=== PATIENT | female | born 2000 | race African-American/Black ===

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

== ENCOUNTER 2019-05-06 21:55 | Emergency (ER) | payer OTHER ==
--- NOTE | 2019-05-06 22:07 | PDOC ---
History of Present Illness - General Chief Complaint: Irregular Heart Beat Stated Complaint: ELEVATED HEART RATE Time Seen by Provider: 05/06/19 22:02 Past History - Past Medical History Allergies/Adverse Reactions: Allergies Allergy/AdvReac Type Severity Reaction Status Date / Time No Known Allergies Allergy Verified 05/06/19 22:01 Home Medications: Ambulatory Orders 19 Tablet 1 tab PO DAILY 05/06/19 Asthma: No Cancer: No Cardiac Disorders: No COPD: No Diabetes: No HTN: No Seizures: No Thyroid Disease: No - Reproductive History (#): 2 Para: 1 Cervical CA: No Dysfunctional Uterine Bleeding: No Ectopic : No Endometrial CA: No Polycystic Ovaries: No Tubal Ligation: No - Immunization History Immunization Up to Date: Yes - Suicide/Smoking/Psychosocial Hx Smoking History: Never smoked Have you smoked in the past 12 months: No If you are a former smoker, when did you quit?: 2016 Information on smoking cessation initiated: No Hx Alcohol Use: No Drug/Substance Use Hx: No Substance Use Type: Marijuana Hx Substance Use Treatment: No *Physical Exam - Vital Signs Last Vital Signs Temp Pulse Resp BP Pulse Ox 98.6 F 111 H 20 128/62 98 05/06/19 22:01 05/06/19 22:01 05/06/19 22:01 05/06/19 22:01 05/06/19 22:01 ED Treatment Course - LABORATORY CBC & Chemistry Diagram: 05/06/19 22:42 05/06/19 22:42 Medical Decision Making - Medical Decision Making HPI: 19 yo F A0 currently 28 weeks presenting with crampy lower abdominal pain x 1 day. First was complicated by short cervix and gestational diabetes. Patient initially presented to L&D and was found to be without distress. Sent to the ED for evaluation of tachycardia. Patient with HR of 111 after receiving 1L of fluids. Has no abdominal pain currently. Patient reports that she has not been eating or hydrating well. Only had one glass of water today. Does not know if she has as history of tachycardia. No lightheadedness, weakness, or headache. Last bowel movement was today and was a normal formed brown stool without blood. Denies contractions, vaginal bleeding/ discharge. No fevers, chills, chest pain, or shortness of breath. PCP: Dr. Patel smart energy specialist: Dr. Mckeon ROS: Constitutional: no fever, no chills HEENT: no throat pain, no dysphagia Cardiovascular: no chest pain, no palpitations Respiratory: no cough, no shortness of breath Gastrointestinal: +abdominal pain, no nausea Genitourinary: no dysuria, no frequency Musculoskeletal: no myalgia, no arthralgia Skin: no rash, no itching Neurologic: no headache, no weakness PE: General: Awake, alert, and fully oriented, in no acute distress Head: No signs of trauma Eyes: EOMI, sclera anicteric ENT: Moist mucus membranes Neck: Normal ROM, supple Lungs: Lungs clear, Normal breath sounds Cardio: Tachycardia, Regular rhythm, S1 and S2 present Abdomen: Soft, nontender. No guarding, no rebound, no masses. Gravid uterus. Extremities: Normal range of motion, Distal pulses present SKIN: Warm, Dry, normal turgor Neurologic: Cranial nerves II through XII grossly intact. Normal speech ED Courses/ MDM: DDX including but not limited to dehydration, anemia, electrolyte abnormality, hyperthyroidism Labs, EKG, Fluids 05/06/19 22:28 Per nurse Gennaro, patient initially refused IV placement 20 gauge IV placed in the Left AC by myself Labs sent 05/06/19 22:48 CBC WBC 8.5 K/mm3 (4.0-10.0) 05/06/19 22:42 RBC 3.51 M/mm3 (3.60-5.2) L 05/06/19 22:42 Hgb 11.2 GM/dL (10.7-15.3) 05/06/19 22:42 Hct 32.6 % (32.4-45.2) D 05/06/19 22:42 MCV 93.0 fl (80-96) 05/06/19 22:42 MCH 32.0 pg (25.7-33.7) 05/06/19 22:42 MCHC 34.4 g/dl (32.0-36.0) 05/06/19 22:42 RDW 11.9 % (11.6-15.6) 05/06/19 22:42 Plt Count 223 K/MM3 (134-434) 05/06/19 22:42 MPV 8.3 fl (7.5-11.1) 05/06/19 22:42 Absolute Neuts (auto) 7.1 K/mm3 (1.5-8.0) 05/06/19 22:42 Neutrophils % 83.0 % (42.8-82.8) H D 05/06/19 22:42 Lymphocytes % 9.4 % (8-40) D 05/06/19 22:42 Monocytes % 6.7 % (3.8-10.2) 05/06/19 22:42 Eosinophils % 0.5 % (0-4.5) 05/06/19 22:42 Basophils % 0.4 % (0-2.0) 05/06/19 22:42 Nucleated RBC % 0 % (0-0) 05/06/19 22:42 No anemia or leukocytosis CMP Sodium 140 mmol/L (136-145) 05/06/19 22:42 Potassium 3.5 mmol/L (3.5-5.1) 05/06/19 22:42 Chloride 108 mmol/L (98-107) H 05/06/19 22:42 Carbon Dioxide 25 mmol/L (21-32) 05/06/19 22:42 Anion Gap 7 MMOL/L (8-16) L 05/06/19 22:42 BUN 4.7 mg/dL (7-18) L 05/06/19 22:42 Creatinine 0.5 mg/dL (0.55-1.3) L 05/06/19 22:42 Est GFR (CKD-EPI)AfAm 161.48 05/06/19 22:42 Est GFR (CKD-EPI)NonAf 139.32 05/06/19 22:42 Random Glucose 90 mg/dL (74-106) 05/06/19 22:42 Calcium 8.4 mg/dL (8.5-10.1) L 05/06/19 22:42 Total Bilirubin 0.2 mg/dL (0.2-1) 05/06/19 22:42 AST 10 U/L (15-37) L 05/06/19 22:42 ALT 11 U/L (13-61) L 05/06/19 22:42 Alkaline Phosphatase 92 U/L (45-117) 05/06/19 22:42 Total Protein 6.7 g/dl (6.4-8.2) 05/06/19 22:42 Albumin 2.9 g/dl (3.4-5.0) L 05/06/19 22:42 TSH 0.66 uIU/ml (0.358-3.74) 05/06/19 22:42 Electrolytes unremarkable Normal TSH EKG: rate 118, QTc 454, sinus tachycardia Patient given total of 3L NS (1L on L&D and 2L in the ED) Repeat HR is 129 I am unsure what is the cause of her tachycardia. Tachycardia up to 25% above normal can be expected during , especially during the third trimester, but this is above the expected level. If the cause of the tachycardia was dehydration, patient should be sufficiently hydrated by now. Denies history of cardiac problems. Normal TSH. While EKG does not show afib or SVT, there is concern for a cardiac abnormality. Plan for admission. Patient unwilling to stay for admission stating she needs to take care of her son. Benefits/risks of admission explained, and patient still refuses. Signed AMA form Referral to cardiology given 05/07/19 01:22 *DC/Admit/Observation/Transfer Diagnosis at time of Disposition: Tachycardia, Left against medical advice Abdominal pain during Qualifiers: Trimester: third trimester Qualified Code(s): O26.893 - Other specified related conditions, third trimester - Discharge Dispostion Disposition: AGAINST MEDICAL ADVICE Condition at time of disposition: Guarded - Referrals Referrals: Tracee Patel MD [Primary Care Provider] - Jeramy Tamayo MD [Staff Physician] - - Patient Instructions Printed Discharge Instructions: DI for Dehydration -- Adult, DI for Tachycardia Additional Instructions: You came into the emergency department for abdominal pain during and a high heart rate. Your blood work and EKG were within normal limits. You decided to leave against medical advice. As discussed you may have undiagnosed illness or medical diagnosis that if left untreated can lead to multiple complications including, but not limited to permanent disability and . Should you reconsider you should turn to the emergency department for evaluation. Eat and hydrate throughout the day to prevent dehydration and low blood sugar levels. Follow-up with your cargo services coordinator to discuss this ED visit and to further evaluate your symptoms. Call and make an appointment tomorrow morning. Your workup is not complete until you do so. We put in a referral for cardiology. Call and make an appointment. Your workup is not complete until you do so. Immediate medical attention is required if: worsening pain, vaginal bleeding, have any chest pain, palpitations, shortness of breath, severe headaches, changes in vision, focal numbness or weakness, any severe abdominal pain, any black tarry stool, or any new or concerning symptoms. If you think you are having an emergency, call for emergency medical services or present to the emergency department right away. - Post Discharge Activity Forms/Work/School Notes: Back to Work
[2019-05-06 22:17] VITALS: TEMP 98.6; BMI 24.5
[2019-05-06] MEDS ORDERED: SODIUM CHLORIDE 2,000 ML IV STA (22:27)
[2019-05-06 22:54] LABS: BASO % 0.4 % (0-2.0); EOS % 0.5 % (0-4.5); HEMATOCRIT 32.6 % (32.4-45.2); HEMOGLOBIN 11.2 GM/dL (10.7-15.3); LYMPH % 9.4 % (8-40); MCHC 34.4 g/dl (32.0-36.0); MEAN PLT VOLUME 8.3 fl (7.5-11.1); MONO % 6.7 % (3.8-10.2); PLATELET COUNT 223 K/MM3 (134-434); RBC 3.51 M/mm3 (3.60-5.2); RDW 11.9 % (11.6-15.6); WHITE BLOOD COUNT 8.5 K/mm3 (4.0-10.0)
[2019-05-06 23:12] LABS: INR 0.97 (0.83-1.09); PROTHROMBIN TIME (PATIENT) 11.4 SEC (9.7-13.0)
[2019-05-06 23:17] LABS: ALBUMIN 2.9 g/dl (3.4-5.0); BILIRUBIN,TOTAL 0.2 mg/dL (0.2-1); BLOOD UREA NITROGEN 4.7 mg/dL (7-18); CALCIUM 8.4 mg/dL (8.5-10.1); CREATININE 0.5 mg/dL (0.55-1.3); POTASSIUM 3.5 mmol/L (3.5-5.1); TOT PROT 6.7 g/dl (6.4-8.2)
--- NOTE | 2019-05-07 00:06 | PDOC ---
Documentation entered by Angélica Kaur SCRIBE, acting as scribe for Jackie Bee MD. Jackie Bee MD: This documentation has been prepared by the Natasha ron Brenda, SCRIBE, under my direction and personally reviewed by me in its entirety. I confirm that the documentation accurately reflects all work, treatment, procedures, and medical decision making performed by me. Attending Attestation - Resident Resident Name: Juany Harry - ED Attending Attestation I have performed the following: I have examined & evaluated the patient, The case was reviewed & discussed with the resident, I agree w/resident's findings & plan, Exceptions are as noted - HPI HPI: 05/06/19 22:54 The patient is a 19 year old female (), currently 28 weeks , with a significant PMH of gestational diabetes and short cervix during last delivery, who presents to the emergency department sent from L&D for evaluation of tachycardia. The patient reports going to L&D today for 1 day of lower abdominal cramping, where she was found to be tachycardic and sent to the ED for evaluation. She also stated that she has recently been having poor PO intake and has been feeling dehydrated. Patient also notes that her other child was recently recovering from [place]. The patient denies chest pain, shortness of breath, headache and dizziness. Denies fever, chills, nausea, vomiting, diarrhea and constipation. Denies dysuria, frequency, urgency and hematuria. Denies spotting. Allergies: NKA Social history: Hx of marijuana use. PCP: Tracee Patel MD - Physicial Exam PE: 05/06/19 22:54 GENERAL: Afebrile. Awake, alert, and fully oriented, in no acute distress HEAD: No signs of trauma EYES: PERRLA, EOMI, sclera anicteric, conjunctiva clear ENT: Auricles normal inspection, hearing grossly normal, nares patent, oropharynx clear without exudates. Moist mucosa NECK: Normal ROM, supple, no lymphadenopathy, JVD, or masses LUNGS: Breath sounds equal, clear to auscultation bilaterally. No wheezes, and no crackles HEART: +Tachycardic. Normal S1 and S2, no murmurs, rubs or gallops ABDOMEN: Soft, nontender, normoactive bowel sounds. No guarding, no rebound. No masses EXTREMITIES: Normal range of motion, no edema. No clubbing or cyanosis. No cords, erythema, or tenderness NEUROLOGICAL: Cranial nerves II through XII grossly intact. Normal speech, normal gait SKIN: Warm, Dry, normal turgor, no rashes or lesions noted. - Medical Decision Making 05/07/19 01:33 Pt remains tachy. She was 132 when she came to the ER, and she remains in the 130s zia after a 2L bolus. She is refusing to stay in the hospital. We want to admither to the medicine service for tachycardia NOS, and potesntially for echocardogram. Pt understands the risks of signing out AMA, but she insists on signing AMA. Heart Score/ECG Review - ECG Intrepretation Rhythm: Regular Rhythm - [place]: Normal - QRS Poor R Wave Progression: No Q Wave Present: No - ST and T Early Repolarization: No Non Specific ST-T Wave changes: No Comment:: 05/07/19 01:08 Pt has AK depression that is diffuse and consistent with pericarditis. - ECG Impressions Normal ECG: No Non-specific ST Elevation: No Ischemic Changes: No Tachycardia: Sinus (tachy to 118 bpm)
[2019-05-07 00:24] VITALS: BP 121/69; PULSE 119
--- NOTE | 2019-05-08 00:04 | EKG ---
Test Reason : Blood Pressure : / mmHG Vent. Rate : 118 BPM Atrial Rate : 118 BPM P-R Int : 142 ms QRS Dur : 074 ms QT Int : 324 ms P-R-T Axes : 048 029 025 degrees QTc Int : 454 ms SINUS TACHYCARDIA NONSPECIFIC T WAVE ABNORMALITY ABNORMAL ECG NO PREVIOUS ECGS AVAILABLE Confirmed by ESVIN MAHER MD ([id number]) on 05/08/2019 12:03:51 AM Referred By: Confirmed By:ESVIN MAHER MD
== END 2019-05-07 01:38 | disposition left against medical advice (07) ==
LOC: JER 21:55
PROC: 3E0337Z Introduction of Electrolytic and Water Balance Substance into Peripheral Vein, Percutaneous Approach (ICD-10-PCS; principal; 2019-05-06)
DX: I49.9 Cardiac arrhythmia, unspecified (principal); O26.893 Other specified pregnancy related conditions, third trimester; Z3A.28 28 weeks gestation of pregnancy; R00.0 Tachycardia, unspecified
CPT/HCPCS: 36415; 59025; 80053; 81003; 82731; 84443; 85025; 85610; 87086; 93005; 93010; 99283-25; J7030